=== PATIENT | male | born 1970 | race Caucasian/White ===

== ENCOUNTER → 2018-05-29 | Day surgery (SDC) | payer MEDICARE, MEDICAID ==
[2018-05-28 12:01] VITALS: BMI 25.0
[~2018-05-29] MED LIST: Lidocaine 1% PF 5 ML VIAL ONE; PROPOFOL 200 MG/20 ML VIAL ONE
--- NOTE | 2018-05-29 14:03 | OP ---
DATE OF PROCEDURE: 05/29/2018 PROCEDURE: Colonoscopy with biopsy. INDICATION FOR PROCEDURE: Screening for malignant neoplasm of the colon. DESCRIPTION OF PROCEDURE: After the risks and benefits were explained to the patient's surrogate inc luding risks of bleeding, infection, perforation, reactions to anesthesia, aspiration and/or pain, in formed consent was obtained. The patient was then taken to the endoscopy suite where deep sedation w as administered via propofol and anesthesia support. Once adequate sedation was achieved, a digital rectal examination was performed followed by introduction of the standard colonoscope into the rectum with intubation of the colon to the terminal ileum. The scope was then withdrawn with careful exami nation of the mucosa performed. The quality of the prep was good. The patient tolerated the procedu re well with no immediate perioperative complications. Once the procedure was completed, all equipme nts were removed and the patient was taken to the recovery area in satisfactory condition. COLONOSCOPY FINDINGS: Digital rectal exam normal. COLON FINDINGS: Normal-appearing mucosa was seen in the terminal ileum as well as at the ileocecal v alve and the appendiceal orifice. Normal-appearing mucosa was also seen in the cecum and ascending c olon. However, at approximately 70 cm past the anal verge in the transverse colon, mild mucosal nodu larity was noted in a circumferential pattern for an approximately 10-15 cm segment of colon. Random biopsies were taken from a access representative sample of this area and placed in a specimen jar for evalu ation. Otherwise, normal-appearing mucosa was seen in the distal transverse and descending colons. Within the distal sigmoid colon at 20 cm was an area of multiple targetoid looking lesions within the lining of the colon that displayed increased erythema, but did not have any associated erosions or u lcerations. Biopsies were taken from a access representative sample of these as well and placed in a specim en jar for evaluation. Otherwise, the remainder of the sigmoid and the rectum appeared normal. Smal l internal hemorrhoids were seen on rectal retroflexion. IMPRESSION: 1. Mild nodularity of the transverse colon at 70 cm, status post biopsies consistent with lymphoid a ggregates. 2. Increased number of targetoid erythematous mucosal lesions in the sigmoid colon also consistent w ith lymphoid aggregate status post biopsies. 3. Small internal hemorrhoids. RECOMMENDATIONS: 1. We will follow up on the biopsies with repeat colonoscopy interval depending on biopsies. 2. If the biopsies show lymphoid aggregates, then repeat colonoscopy would be recommended in 10 year s given the lack of family history of colon cancer. 3. Recommend higher fiber diet given the history of constipation and hemorrhoids seen on examination today.
== END | disposition home or self-care (01) ==
LOC: SDC 10:13
PROVIDERS: ATTEND Internal Medicine
PROC: 0DBP8ZX Excision of Rectum, Via Natural or Artificial Opening Endoscopic, Diagnostic (ICD-10-PCS; principal; 2018-05-29)
PROC: 0DBL8ZX Excision of Transverse Colon, Via Natural or Artificial Opening Endoscopic, Diagnostic (ICD-10-PCS; 2018-05-29)
DX: Z12.11 Encounter for screening for malignant neoplasm of colon (principal); K63.9 Disease of intestine, unspecified; K64.8 Other hemorrhoids
CPT/HCPCS: 88305; J2001; J2704